=== PATIENT | female | born 1970 | race Caucasian/White ===

== ENCOUNTER 2022-03-22 12:58 | Emergency (ER) | payer MEDICAID ==
[~2022-03-22] VITALS: Ht 152.4 cm; Wt 50.0 kg
[2022-03-22] MEDS ORDERED: KETOROLAC 30MG/ML VIAL IM STA (14:04)
[2022-03-22 14:11] VITALS: BP 153/75
[2022-03-22] MEDS ORDERED: FAMOTIDINE 20MG TABLET PO ONE (14:15)
[2022-03-22 14:46] LABS: BASOPHILS % 0.3 % (0.0-2.0); EOSINOPHILS % 0.7 % (0.0-5.0); HEMATOCRIT. 35.9 % (36.0-48.0); HEMOGLOBIN. 12.2 g/dL (12.0-16.0); LYMPHOCYTES % 16.1 % (20.0-50.0); MEAN CORPUSCULAR HEMOGLOBIN 30.7 pg (28.0-32.0); MEAN CORPUSCULAR VOLUME 90.2 fL (81.0-99.0); MEAN PLATELET VOLUME 8.8 fl (7.4-10.4); MONOCYTES % 9.8 % (2.0-8.0); NEUTROPHILS % 73.1 % (40.0-76.0); PLATELET 238 x1000/uL (130-400); RED BLOOD CELL COUNT 3.98 mill/uL (4.2-5.4); RED CELL DISTRIBUTION WIDTH 13.9 % (11.6-14.6)
[2022-03-22 14:58] LABS: CHLORIDE 103 mEq/L (98-107)
[2022-03-22 17:23] LABS: CLARITY URINE CLOUDY (CLEAR); COLOR URINE YELLOW (YELLOW); KETONES URINE 1+ (NEGATIVE); LEUKOCYTE ESTERASE URINE 3+ (NEGATIVE); NITRITE URINE NEGATIVE (NEGATIVE); OCCULT BLOOD URINE TRACE (NEGATIVE); PH URINE 6.5 (4.5-8.0); PROTEIN URINE NEGATIVE (NEGATIVE); SPECIFIC GRAVITY URINE 1.009 (1.005-1.030); UROBILINOGEN URINE 0.2 E.U./dL (0.2-1.0)
== END 2022-03-22 18:29 | disposition home or self-care (01) ==
LOC: ER 12:58
DX: R10.12 Left upper quadrant pain (principal)
CPT/HCPCS: 36415; 80053; 81003; 83690; 85025; 96372; 99283; J1885